=== PATIENT | male | born 1955 | race Caucasian/White ===

== ENCOUNTER 2020-08-20 09:53 | Day surgery (SDC) | payer MEDICARE ==
[2020-08-16 15:24] VITALS: BMI 23.0
[2020-08-20] MEDS ORDERED: Fentanyl 100 MCG/2 ML VIAL ONE ×3 (11:11→12:50)
[2020-08-20] MEDS ORDERED: EPINEPHrine 1 MG/ML AMP ONE (11:14)
[2020-08-20] MEDS ORDERED: Bupivacaine 0.25% HCL 30 ML VIAL ONE (11:14)
[2020-08-20] MEDS ORDERED: Dexamethasone 20 MG/5 ML VIAL ONE (11:54)
[2020-08-20] MEDS ORDERED: Lidocaine 1% PF 5 ML VIAL ONE (11:54)
[2020-08-20] MEDS ORDERED: Ondansetron PF 4 MG/2 ML Vial ONE (11:54)
[2020-08-20] MEDS ORDERED: PROPOFOL 200 MG/20 ML VIAL ONE (11:54)
== END 2020-08-20 14:21 | disposition home or self-care (01) ==
LOC: SDC 09:53
PROVIDERS: ATTEND Surgery
PROC: 0YU50JZ Supplement Right Inguinal Region with Synthetic Substitute, Open Approach (ICD-10-PCS; principal; 2020-08-20)
DX: K40.90 Unilateral inguinal hernia, without obstruction or gangrene, not specified as recurrent (principal); I10 Essential (primary) hypertension; Z79.899 Other long term (current) drug therapy
CPT/HCPCS: C1781; J0171; J0690; J1100; J2405; J2704; J3010; S0020